=== PATIENT | female | born 1950 | race Caucasian/White ===

== ENCOUNTER → 2016-12-13 | Outpatient (CLI) | payer OTHER | LOC: CIMAGING 16:56 | PROVIDERS: ATTEND Emergency Medicine | DX: M41.54 Other secondary scoliosis, thoracic region (principal) | CPT/HCPCS: 72072-PO ==

== ENCOUNTER → 2017-09-30 | Outpatient (CLI) | payer OTHER | LOC: CIMAGING 14:02 | PROVIDERS: ATTEND Internal Medicine | DX: M25.512 Pain in left shoulder (principal); G89.29 Other chronic pain; M50.322 Other cervical disc degeneration at C5-C6 level; M99.51 Intervertebral disc stenosis of neural canal of cervical region; M46.92 Unspecified inflammatory spondylopathy, cervical region; M41.9 Scoliosis, unspecified | CPT/HCPCS: 72050-PO; 73030-PO ==

== ENCOUNTER 2018-05-24 17:24 | Emergency (ER) | payer OTHER ==
[2018-05-24] MEDS ORDERED: NITROFURANTOIN 100MG PREPACK#2 BTL TAKEHOME ONE (18:57)
--- NOTE | 2018-05-24 18:57 | EDPHY ---
H & P Time Seen by Provider: 05/24/18 17:37 HPI/ROS: CHIEF COMPLAINT: Difficulty urinating History by patient HISTORY OF PRESENT ILLNESS: 67-year-old woman with a history of hypertension and CHF who is on Lasix and spironolactone presents complaining of difficulty urinating since last night. Patient woke up this morning with the need to urinate but felt like she was having difficulty going due to discomfort at her urethra as well as a pressure-like sensation in her bladder. She states that every time she goes she urinates only a small amount. She took her usual dose of Lasix and this seemed to urinate more, but then again had sensation of incomplete voiding and frequency. She has a remote history of kidney stones and had some mild back pain last night but denies any today. There has been no nausea or vomiting. She denies any abdominal pain but complains of some suprapubic pressure like discomfort. She denies any fever. She has denies any difficulty or change in her bowels. REVIEW OF SYSTEMS: As in HPI, and all other systems reviewed and are negative Smoking Status: Never smoked Physical Exam: General Appearance: Alert, nontoxic-appearing Head: normocephalic, atraumatic Eyes: Pupils equal and round, reactive to light, no pallor or injection. Mouth: Mucous membranes moist. Oropharynx clear Neck: No bony tenderness, full range of motion Respiratory: Normal, effort, lungs are clear to auscultation. No wheezes, rales or rhonchi. Cardiovascular: Regular rate and rhythm. S1, S2, no murmurs, gallops or rubs appreciated Gastrointestinal: Abdomen is soft and nontender, no masses, bowel sounds normal. Back: No CVA tenderness, no bony tenderness Neurological: Awake, alert and oriented x 3, cranial nerves 2-12 intact, no pronator drift, normal gait, Skin: Warm and dry, no rashes. Musculoskeletal: No deformities or tenderness. Extremities: full range of motion, no edema, DP2+ bilat Psychiatric: Patient has normal affect, there is no agitation. Constitutional: Initial Vital Signs Temperature (C) 36.6 C 05/24/18 17:33 Heart Rate 72 05/24/18 17:33 Respiratory Rate 18 05/24/18 17:33 Blood Pressure 108/68 05/24/18 17:33 O2 Sat (%) 95 05/24/18 17:33 O2 Delivery Mode Room Air Allergies/Adverse Reactions: erythromycin lactobionate [From Erythrocin] Allergy (Verified 05/24/18 17:30) Penicillins Allergy (Verified 05/24/18 17:30) Home Medications: Medication Instructions Recorded Aspirin 05/24/18 Lasix 05/24/18 Lidocaine [Lidocaine 5% oint] 1 deana TP BID #1 tube 05/24/18 Nitrofurantoin Monohyd/M-Cryst 100 mg PO BID #10 capsule 05/24/18 [Macrobid 100 mg Capsule] Potassium Chloride 05/24/18 Spironolactone 05/24/18 MDM/Departure - MDM Medications Given: Discontinued Medications Nitrofurantoin (Macrobid 100mg Prepack#2) 1 btl TAKEHOME EDNOW ONE PRN Reason: Protocol Stop: 05/24/18 18:58 Last Admin: 05/24/18 19:08 Dose: 1 btl Phenazopyridine HCl (Pyridium) 200 mg PO EDNOW ONE Stop: 05/24/18 18:59 Last Admin: 05/24/18 19:07 Dose: 200 mg ED Course/Re-evaluation: 67-year-old woman presents with some dysuria, frequency and sensation of incomplete voiding. Urinalysis is notable for positive red blood cells. I did perform a bedside ultrasound which showed a small amount of urine in the bladder , but no bladder distention or evidence of retention. Patient's symptoms are consistent with a urinary tract infection. At this point she has no clinical evidence of ureterolithiasis. She is otherwise and nontoxic appearing. Because the urinalysis was equivocal it has been sent for culture. We will go ahead and treat the patient both symptomatically as well as for urinary tract infection with Macrobid. I discussed with the patient that if her urine culture comes back negative she will need to follow up with her primary care physician to be evaluated for hematuria and her symptoms.. - Depart Disposition: Home, Routine, Self-Care Clinical Impression: Urinary tract infection Qualifiers: Urinary tract infection type: site unspecified Hematuria presence: with hematuria Qualified Code(s): N39.0 - Urinary tract infection, site not specified Condition: Good Instructions: Nitrofurantoin Combination (By mouth), Urinary Tract Infection in Women (ED) Additional Instructions: You were seen by Dr. Barbara Goyal today. We are treating you for urinary tract infection. Please take antibiotics ( Macrobid) as prescribed. You may take pyridium for the sensation of frequency urgency and burning. You may try topical lidocaine gel also for the discomfort at your urethra. Try also urinating in a warm bath or shower to relieve her discomfort. Continue to take her Lasix as prescribed based on your weight and swelling. We have sent your urine for culture. You may call to get the results of this in 24-48 hours. If the urine culture is negative then you will need further testing to evaluate for the blood in your urine. Please schedule an appointment with her primary care physician,Dr Contreras, later this week for follow-up. Return for any worsening or new concerns. Prescriptions: Lidocaine [Lidocaine 5% oint] 1 deana TP BID #1 tube Nitrofurantoin Monohyd/M-Cryst [Macrobid 100 mg Capsule] 100 mg PO BID #10 capsule Referrals: Nanyc Duffy MD [Primary Care Provider] - As per Instructions
[2018-05-24] MEDS ORDERED: PHENAZOPYRIDINE HCL 200 MG TAB PO ONE (18:58)
[2018-05-24 20:27] VITALS: BP 109/73
== END 2018-05-24 19:20 | disposition home or self-care (01) ==
LOC: CED 17:24
DX: N39.0 Urinary tract infection, site not specified (principal); I11.0 Hypertensive heart disease with heart failure; I50.9 Heart failure, unspecified; Z79.899 Other long term (current) drug therapy
CPT/HCPCS: 80048-ER; 99284-ER